=== PATIENT | male | born 1950 | race Caucasian/White ===

== ENCOUNTER → 2024-03-19 | Outpatient (CLI) | payer MEDICARE ==
--- NOTE | 2024-03-19 08:43 | HMCIMG ---
CT ABDOMEN/PELVIS W/O CONTRAST REASON: GENERALIZED ABD PAIN COMPARISON: None. TECHNIQUE: Images are obtained from lung bases to the symphysis pubis following oral contrast. FINDINGS: Lung bases are clear. There is a 2.5 cm cyst posterior segment right lobe. There are no solid focal liver lesions.. There is 1.5 cm cyst midportion left kidney. There are otherwise normal-appearing kidneys.. Spleen and pancreas appear unremarkable. The gallbladder appears normal as well. Bowel loops appear unremarkable. There is no CT evidence of acute appendicitis. There is no evidence of free fluid or intraperitoneal air. There are no focal fluid collections. Aorta and retroperitoneum appear normal as do pelvic soft tissue structures. There are small to moderate inguinal hernias present on both sides. There is a small bowel loop just entering the inguinal hernia on the right, there is a second small bowel loop but just entering the inguinal hernia on the left. The right inguinal hernia appears somewhat larger at this time. Osseous structures appear unremarkable. IMPRESSION: 1. Bilateral inguinal hernias, small to moderate in size, each hernia has a small bowel loop just entering at the orifice. 2. No evidence of strangulation or obstruction. 3. No acute finding in the abdomen or pelvis. CT was performed with one or more following dose reduction techniques: automated exposure control, adjustment of the mA and kv according to patient's size, or use of a iterative reconstruction technique.
== END | disposition home or self-care (01) ==
LOC: RAH 07:49
PROVIDERS: ATTEND Internal Medicine Gastroenterology
DX: K40.20 Bilateral inguinal hernia, without obstruction or gangrene, not specified as recurrent (principal); R10.84 Generalized abdominal pain; N28.1 Cyst of kidney, acquired
CPT/HCPCS: 74176